=== PATIENT | male | born 1955 | race Caucasian/White ===

== ENCOUNTER 2019-02-11 03:06 | Inpatient (IN) | payer OTHER ==
[~2019-02-11] VITALS: Ht 175.3 cm; Wt 76.7 kg
[2019-02-11] VITALS (32 sets, daily range): BP systolic 92–149; BP diastolic 30–76
[2019-02-11] MEDS ORDERED: LEVOXYL100 MCG PO (03:09)
[2019-02-11] MEDS ORDERED: ZOCOR20 MG PO (03:09)
[2019-02-11] MEDS ORDERED: LANTUS100 UNIT/M SUBQ (03:10)
[2019-02-11] MEDS ORDERED: METFORMIN HCL500 MG PO (03:10)
[2019-02-11 03:20] LABS: MPV 7.5 fl. (7.2-11.1)
[2019-02-11 03:24] LABS: HEMATOCRIT 51.2 % (42.0-52.0); HEMOGLOBIN 14.1 gm/dL (14.0-18.0); MCH 29.1 pg (26.0-34.0); MCHC 27.5 g/dL (28.0-37.0); MCV 105.7 fL (80.0-100.0); NUCLEATED RBCS 0 /100WBC; PLATELET COUNT* 393 thou/uL (150-400); RBC 4.85 mil/uL (4.50-6.00); RDW-CV 14.9 % (10.5-14.5); WBC 29.9 thou/uL (4.0-11.0)
[2019-02-11 03:32] LABS: ANION GAP 35 mmol/L (7-16); BUN 70 mg/dL (7-18); CALCIUM 8.3 mg/dL (8.5-10.1); CHLORIDE 81 mmol/L (98-107); CREATININE 4.4 mg/dL (0.6-1.3); SODIUM 121 mmol/L (136-145)
[2019-02-11 03:33] LABS: PROTIME 10.6 Seconds (9.20-11.50)
[2019-02-11 03:34] LABS: CO2 < 5 mmol/L (21-32); POTASSIUM 7.9 mmol/L (3.5-5.1)
[2019-02-11 03:40] LABS: GLUCOSE 1333 mg/dL (70-99)
[2019-02-11 03:44] LABS: ALBUMIN 3.5 g/dL (3.4-5.0); ALKALINE PHOSPHATASE 107 U/L (46-116); MAGNESIUM 3.9 mg/dL (1.8-2.4); NT-PRO BRAIN NAT PEPTIDE 672 pg/mL (<300); SGOT 17 U/L (15-37); SGPT 26 U/L (30-65); TOTAL BILIRUBIN 0.4 mg/dL (<0.1-1.0); TOTAL PROTEIN 6.9 g/dL (6.4-8.2); TROPONIN-I LEVEL <0.06 ng/mL (<0.06)
[2019-02-11 03:59] LABS: BE -31.3 mmol/L (-2 to +3)
[2019-02-11 04:01] LABS: pH 6.806 (7.340-7.450)
[2019-02-11 04:02] LABS: PCO2 > 163.4 mmHg (35.0-45.0); PO2 154.9 mmHg (75.0-100.0)
[2019-02-11 04:06] LABS: PHOSPHORUS* 18.6 mg/dL (2.5-4.9)
[2019-02-11 04:23] LABS: ABSOLUTE LYMPHOCYTES 6.3 thou/uL (0.8-5.3); ABSOLUTE MONOCYTES 2.4 thou/uL (0.0-1.2); ABSOLUTE NEUTROPHILS 21.2 thou/uL (1.6-8.1); PLATELET ESTIMATE ADEQUATE; TOXIC GRANULATION 1+
[2019-02-11 04:24] LABS: ANISOCYTOSIS 1+; MACROCYTES 1+
[2019-02-11 04:30] LABS: LIPASE 24229 U/L (73-393)
[2019-02-11 06:39] LABS: ALBUMIN 3.2 g/dL (3.4-5.0); CALCIUM 8.3 mg/dL (8.5-10.1); CREATININE 3.7 mg/dL (0.6-1.3); MAGNESIUM 3.5 mg/dL (1.8-2.4); PHOSPHORUS* 12.6 mg/dL (2.5-4.9)
[2019-02-11 06:40] LABS: POTASSIUM 6.7 mmol/L (3.5-5.1)
--- NOTE | 2019-02-11 06:56 | NUR ---
PT ADMITTED TO ICU ROOM 6 AT 0515 FOR DKA. PT ARRIVED WITH ISSULIN DRIP AND IV FLUIDS INFUSING. SERUM GLUCOSE DRAWN PER PROTOCL TO MANAGE INSULIN DRIP. CRITICAL SERUM CO2 LEVEL CALLED TO DR WOLFE AT 0650. ORDERS RECIEVED FOR IV BICARB. PT'S AT BEDSIDE ASSISTING WITH CARE. PT GIVEN IV ZOFRAN FOR NAUSEA WITH GOOD RESULTS.
[2019-02-11 08:05] LABS: URINE BILIRUBIN NEGATIVE (Negative); URINE BLOOD 3+ (Negative); URINE CLARITY CLEAR; URINE COLOR YELLOW; URINE GLUCOSE-RANDOM 3+ (Negative); URINE LEUKOCYTES-REFLEX NEGATIVE (Negative); URINE NITRITE-REFLEX NEGATIVE (Negative); URINE PROTEIN TRACE (Negative); URINE UROBILINOGEN 0.2 E.U./dl (0.2-1.0)
[2019-02-11 08:12] LABS: URINE KETONES 3+ (Negative)
[2019-02-11 08:22] LABS: SQUAMOUS NONE SEEN /LPF (0-3)
[2019-02-11 08:23] LABS: BACTERIA-REFLEX 1-9 Few /HPF (None Seen); URINE RBC 0-2 Rare /HPF (0-2); URINE WBC-REFLEX None Seen /HPF (0-5)
[2019-02-11 08:24] LABS: CASTS None Seen /LPF (None Seen); CRYSTALS None Seen /LPF (None Seen); MUCUS None Seen strn/LPF (None Seen)
[2019-02-11 08:26] LABS: AMP/METHAMP Negative (Negative); BARBITURATES Negative (Negative); BENZODIAZEPINES Negative (Negative); COCAINE Negative (Negative); METHADONE Negative (Negative); OPIATES Negative (Negative); PCP Negative (Negative); THC Negative (Negative)
--- NOTE | 2019-02-11 08:46 | EKG ---
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[id number] Requested By: Leslie Edge Order Number: [id number] MD: Ricardo Berry Measurements Intervals [place] Rate: 94 P: 112 NE: 197 QRS: 76 QRSD: 136 T: -5 QT: 386 QTc: 483 Interpretive Statements Sinus rhythm artifact noted Inferior infarct, age indeterminate Minimal ST elevation, anterolateral leads No previous ECG available for comparison Electronically Signed On 02-11-2019 8:46:06 CDT by Ricardo Berry [email or web address] <ELECTRONICALLY SIGNED> By: Ricardo Berry MD, [facility] 02/11/19 0846 [id number] Ricardo Berry MD, FACC /EPI
[2019-02-11 09:44] LABS: ALBUMIN 3.1 g/dL (3.4-5.0); CALCIUM 7.9 mg/dL (8.5-10.1); CREATININE 3.1 mg/dL (0.6-1.3); PHOSPHORUS* 4.4 mg/dL (2.5-4.9); POTASSIUM 4.7 mmol/L (3.5-5.1)
[2019-02-11 11:14] LABS: BE -14.9 mmol/L (-2 to +3); PCO2 23.1 mmHg (35.0-45.0); PO2 100.9 mmHg (75.0-100.0)
[2019-02-11 11:18] LABS: pH 7.261 (7.340-7.450)
[2019-02-11 14:08] LABS: ALBUMIN 3.1 g/dL (3.4-5.0); CALCIUM 8.2 mg/dL (8.5-10.1); CREATININE 2.5 mg/dL (0.6-1.3); MAGNESIUM 2.7 mg/dL (1.8-2.4); PHOSPHORUS* 3.4 mg/dL (2.5-4.9); POTASSIUM 4.2 mmol/L (3.5-5.1)
[2019-02-11 17:54] LABS: CALCIUM 8.1 mg/dL (8.5-10.1); CREATININE 2.1 mg/dL (0.6-1.3); MAGNESIUM 2.5 mg/dL (1.8-2.4); PHOSPHORUS* 3.2 mg/dL (2.5-4.9); POTASSIUM 3.8 mmol/L (3.5-5.1)
--- NOTE | 2019-02-11 18:20 | NUR ---
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
--- NOTE | 2019-02-11 19:20 | NUR ---
I have checked [facility] RN charting and agree.
[2019-02-11 22:11] LABS: ALBUMIN 3.1 g/dL (3.4-5.0); CALCIUM 8.4 mg/dL (8.5-10.1); CREATININE 1.7 mg/dL (0.6-1.3); MAGNESIUM 2.5 mg/dL (1.8-2.4); PHOSPHORUS* 2.7 mg/dL (2.5-4.9); POTASSIUM 3.6 mmol/L (3.5-5.1)
[2019-02-12] VITALS (14 sets, daily range): BP systolic 114–172; BP diastolic 49–89
[2019-02-12 04:55] LABS: BASOPHILS 0.3 %; EOSINOPHILS 0.1 %; HEMATOCRIT 40.1 % (42.0-52.0); HEMOGLOBIN 13.5 gm/dL (14.0-18.0); LYMPHOCYTES 5.6 %; MCH 29.4 pg (26.0-34.0); MCHC 33.6 g/dL (28.0-37.0); MONOCYTES 10.3 %; MPV 6.5 fl. (7.2-11.1); NUCLEATED RBCS 0 /100WBC; POLYS 83.7 %; RBC 4.59 mil/uL (4.50-6.00); RDW-CV 13.7 % (10.5-14.5)
[2019-02-12 04:56] LABS: URINE BILIRUBIN NEGATIVE (Negative); URINE BLOOD 1+ (Negative); URINE CLARITY CLEAR; URINE COLOR YELLOW; URINE GLUCOSE-RANDOM 1+ (Negative); URINE KETONES TRACE (Negative); URINE LEUKOCYTES NEGATIVE (Negative); URINE NITRITE NEGATIVE (Negative); URINE PROTEIN TRACE (Negative); URINE UROBILINOGEN 0.2 E.U./dl (0.2-1.0)
[2019-02-12 04:58] LABS: ABSOLUTE LYMPHOCYTES 0.8 thou/uL (0.8-5.3); ABSOLUTE MONOCYTES 1.5 thou/uL (0.0-1.2); ABSOLUTE NEUTROPHILS 12.5 thou/uL (1.6-8.1); MCV 87.5 fL (80.0-100.0); PLATELET COUNT* 253 thou/uL (150-400); WBC 14.9 thou/uL (4.0-11.0)
[2019-02-12 05:04] LABS: ANION GAP 9 mmol/L (7-16); BUN 29 mg/dL (7-18); CALCIUM 8.6 mg/dL (8.5-10.1); CHLORIDE 111 mmol/L (98-107); CHOLESTEROL 106 mg/dL (<200); CO2 23 mmol/L (21-32); CREATININE 1.4 mg/dL (0.6-1.3); GLUCOSE 128 mg/dL (70-99); HDL CHOLESTEROL 53 mg/dL (>40); LDL CHOLESTEROL 38 mg/dL (<100); LIPASE 939 U/L (73-393); POTASSIUM 3.4 mmol/L (3.5-5.1); SODIUM 143 mmol/L (136-145); TRIGLYCERIDE 75 mg/dL (<150); VLDL 15 mg/dL (<40)
--- NOTE | 2019-02-12 05:22 | NUR ---
RECEIVED REPORT AND ASSUMED CARE AT 1900. ASSESSMENT COMPLETED CHARTED. ROUNDING COMPLETED, ALL NEEDS MET. BED LOCKED IN LOWEST POSITION, CALL LIGHT WITHIN REACH. NO ACUTE CHANGES THROUGH THE NIGHT. PT REPORTS PAIN/ DISCOMFORT IN HIS BACK, REFUSES PRN MEDICATION.
[2019-02-12 05:25] LABS: CALCIUM 8.7 mg/dL (8.5-10.1); CREATININE 1.4 mg/dL (0.6-1.3); MAGNESIUM 2.4 mg/dL (1.8-2.4); PHOSPHORUS* 2.1 mg/dL (2.5-4.9); POTASSIUM 3.4 mmol/L (3.5-5.1); SERUM ASSESSMENT Clear
[2019-02-12 05:42] LABS: BACTERIA 1-9 Few /HPF (None Seen); FINE GRANULAR CASTS 4-10 Moderate /LPF (None Seen); MUCUS 0-3 Light strn/LPF (None Seen); SQUAMOUS 0-3 Few /LPF (0-3); URIC ACID CRYSTALS 4-10 Moderate /LPF (None Seen); URINE RBC 0-2 Rare /HPF (0-2); URINE WBC 0-5 Rare /HPF (0-5)
[2019-02-12 08:37] LABS: CALCIUM 8.3 mg/dL (8.5-10.1); CREATININE 1.2 mg/dL (0.6-1.3); MAGNESIUM 2.2 mg/dL (1.8-2.4); PHOSPHORUS* 1.8 mg/dL (2.5-4.9); POTASSIUM 3.9 mmol/L (3.5-5.1)
[2019-02-12 09:09] LABS: GLYCOHEMOGLOBIN (HGB A1C) 12.6 % (4.8-5.6)
--- NOTE | 2019-02-12 10:45 | NUR ---
SPOKE WITH PATIENT. HE STATES HIS BLOOD SUGARS ARE NORMALLY WELL CONTROLLED AT HOME, HE THINKS HE MISSED A DOSE OF MEDS AND THEN STARTED FEELING BAD SO DIDN'T TAKE HIS MEDS LATER ON THAT SAME DAY. 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 PT LIVES AT HOME WITH HIS , HAS BEEN ACTIVE AND INDEP. PT DENIES ANY DISCHARGE NEEDS.
--- NOTE | 2019-02-12 17:08 | NUR ---
PATIENT REMAINS A&O X 4, PLEASANT AND COOPERATIVE WITH CARES. NO C/O PAIN OR SOB. DKA PROTOCOL DISCONTINUED THIS AM. PATIENT IS TRANSFER TO ROOM 205, REPORT CALLED TO FLOOR RN AND PATIENT'S WAS UPDATED WITH PATIENT NEW ROOM NUMBER. NO FURTHER CONCERNS AT THIS TIME. WILL CONTINUE TO MONITOR AND CARE PER PLAN OF CARE.
--- NOTE | 2019-02-12 18:26 | NUR ---
PT TRANSFERRED TO ROOM 205 AROUND 1730. ORIENTED TO ROOM. REPORT RECEIVED FROM PREVIOUS RN. NO OTHER CONCERNS AT THIS TIME. CLWR. WCTM.
[2019-02-13] VITALS: BP 132/73
[2019-02-13 04:00] VITALS: BP 141/81
[2019-02-13 04:50] LABS: ABSOLUTE EOSINOPHILS 0.2 thou/uL (0.0-0.7); ABSOLUTE LYMPHOCYTES 1.4 thou/uL (0.8-5.3); ABSOLUTE MONOCYTES 0.9 thou/uL (0.0-1.2); ABSOLUTE NEUTROPHILS 5.6 thou/uL (1.6-8.1); BASOPHILS 0.2 %; EOSINOPHILS 2.6 %; HEMATOCRIT 37.2 % (42.0-52.0); HEMOGLOBIN 12.8 gm/dL (14.0-18.0); MCHC 34.3 g/dL (28.0-37.0); MCV 87.4 fL (80.0-100.0); MONOCYTES 10.9 %; MPV 6.3 fl. (7.2-11.1); NUCLEATED RBCS 0 /100WBC; PLATELET COUNT* 204 thou/uL (150-400); POLYS 69.3 %; RBC 4.26 mil/uL (4.50-6.00); RDW-CV 13.8 % (10.5-14.5)
[2019-02-13 04:56] LABS: CALCIUM 8.9 mg/dL (8.5-10.1); CREATININE 0.7 mg/dL (0.6-1.3); POTASSIUM 3.1 mmol/L (3.5-5.1)
[2019-02-13] MEDS ORDERED: HUMALOG100 UNIT/1 SUBQ (09:39)
[2019-02-13 12:56] VITALS: BP 142/76
[2019-02-13 14:16] VITALS: BP 141/81
--- NOTE | 2019-02-14 10:12 | CON ---
[address] [address] CONSULTATION Name: RICARDO DUDLEY Room: [address] IN M.R.#: [id number] Admission: 02/11/19 Attend Phys: Sunita Wagoner MD Discharge: 02/13/19 Date of : 59 Report #: [id number] THIS REPORT FOR: //name// CC: JESSI physician/PCP Sunita Wagoner DATE OF SERVICE: 02/11/2019 NEPHROLOGY CONSULTATION CONSULTING PHYSICIAN: Dr. Wagoner. HISTORY OF PRESENT ILLNESS: A 64-year-old gentleman admitted with severe DKA. No underlying history of kidney disease. He had a blood sugar of over 1300 and a pH of 6.8. Upon admission, his lipase was also noted to be significantly elevated at almost 25,000. He came in with nausea, vomiting, abdominal discomfort, tells me that he had been compliant with his medications and that his symptoms came on rather suddenly after he went for his grandson's baseball game. He does not have any chest pain or shortness of breath. He currently really does not have any other complaints. REVIEW OF SYSTEMS: Constitutional, psych, heme, eyes, ENT, respiratory, cardiac, GI, , endocrine, all negative except as documented above. PAST MEDICAL HISTORY: Diabetes, dyslipidemia, hypothyroidism. SOCIAL HISTORY: Positive for tobacco. FAMILY HISTORY: Not pertinent to current clinical situation. PHYSICAL EXAMINATION: VITAL SIGNS: Blood pressure 124/48, pulse 116, respirations 18 and temperature 36.1. GENERAL: Not in any distress. EYES: Open. EARS: Externally normal. CARDIOVASCULAR: Tachycardic. LUNGS: Clear to auscultation. ABDOMEN: Some epigastric tenderness. MUSCULOSKELETAL: Nontender. PSYCHIATRIC: Awake, alert. LABORATORY DATA: White cell count 30, hemoglobin 14.1, platelets 393. Sodium 134, potassium 4.7, chloride 100, bicarbonate 12, BUN 65, creatinine 6.1, glucose 662, calcium 7.9, phosphorus 4.4, magnesium 3, albumin 3.1. [place] [id number] CONSULTATION Name: RICARDO DUDLEY Room: [address] IN ..#: [id number] Admission: 02/11/19 Attend Phys: Sunita Wagoner MD Discharge: 02/13/19 Date of : 59 Report #: [id number] ASSESSMENT: 1. Acute kidney injury. Baseline creatinine unknown. Admission creatinine 4.4 down to 3.7 on 02/11/2019 in the setting of severe DKA with blood sugar of over 1300. Urine drug screen was negative. UA noted. CT scan kidneys were okay. 2. Severe diabetic ketoacidosis with blood sugar over 1300, pH of 6.81 and a bicarbonate of 2.3 on admission. Lactic acid was 1.3. 3. Hyperkalemia in the setting of severe hyperglycemia with admission potassium was 7.9, now resolved. 4. Pancreatitis with a lipase of 24,000. PLAN: 1. Continue IV fluids per protocol. 2. Continue insulin drip until anion gap closed. 3. Bicarbonate given. We will repeat a blood gas. 4. We will need a repeat UA at a later time. 5. On empiric antibiotics per Internal Medicine. 6. Check triglyceride if greater than 1000, we will consider plasma exchange. 7. GI has been consulted. 8. We will follow closely along with you. Thank you for requesting my opinion in the care and management of this patient. <ELECTRONICALLY SIGNED> By: Jose C Antonio MD 02/14/19 1012 1110 [id number] Antonio MD /nt
--- NOTE | 2019-02-14 14:07 | CON ---
[address] [address] CONSULTATION Name: RICARDO DUDLEY Room: [address] IN M.R.#: [id number] Admission: 02/11/19 Attend Phys: Sunita Wagoner MD Discharge: 02/13/19 Date of : 59 Report #: [id number] THIS REPORT FOR: //name// CC: [facility] physician/PCP Zita Wagoner DICTATED BY: Ilda Garcia [facility] Please note at the time of this dictation, the patient was seen and physically examined by myself. REASON FOR CONSULTATION: Pancreatitis. HISTORY OF PRESENT ILLNESS: This is a 64-year-old male who had episodes of vomiting that morning since Monday. He had taken his insulin Monday about noon; however, it felt that he became more confused, began vomiting and started to pass out. His did help him to the floor and that is when EMS was called. He was very tachypneic at that time. On evaluation in the ER, his blood sugar was noted to be 1300. CT done at that time showed some nonspecific thickening of the distal esophagus as well as peripancreatic tissue stranding and a fatty liver. The patient has never seen a GI provider. He has never had an EUS or EGD or colonoscopy done in the past. ALLERGIES: No known drug allergies. MEDICATIONS: From home include Zocor, levothyroxine, Glucophage and Lantus. PAST MEDICAL HISTORY: Diabetes, uncontrolled; hyperlipidemia; and hypothyroidism. PAST SURGICAL HISTORY: Negative. FAMILY HISTORY: Negative for any GI or female cancers. SOCIAL HISTORY: Alcohol socially about once a month. He does chew tobacco and denies any illegal drug use. REVIEW OF SYSTEMS: Twelve-point review of systems is essentially negative except what is mentioned in the HPI. PHYSICAL EXAMINATION: VITAL SIGNS: Temperature 36.8, pulse 111, respirations 17 and blood pressure 149/78. HEART: Regular rate and rhythm, tachycardic. LUNGS: Diminished, but clear. ABDOMEN: Soft, positive bowel sounds in all 4 quadrants [place] [address] CONSULTATION Name: RICARDO DUDLEY Room: [address] IN [facility]#: [id number] Admission: 02/11/19 Attend Phys: Sunita Wagoner MD Discharge: 02/13/19 Date of : 59 Report #: [id number] left upper quadrant tenderness noted to palpation. LABORATORY DATA: Hemoglobin is 13.5, white count is 14.9 and platelets 253. Glucose today is 182. CRP is 51. GFR is 61. CT noted in above HPI note. Lipase level was 24,000 on admission, he is down to a little over 900. IMPRESSION: 1. Abdominal pain, epigastric and left upper quadrant. 2. Pancreatitis. 3. Diabetic ketoacidosis, improving. 4. Poorly-controlled diabetic. Hemoglobin A1c was 12.6. 5. Abnormal CT, distal esophageal wall thickening as well as pancreatic stranding. 6. Leukocytosis. PLAN: 1. Continue his IV fluids. 2. Clear liquid diet. 3. The patient will need an EGD for his esophageal wall thickening as well as colon for screening. 4. The patient may likely need an EUS for further evaluation of his pancreatitis. Thank you for allowing us to participate in this patient's care. Please do not hesitate to call with any questions in regard to this consult. <ELECTRONICALLY SIGNED> By: Rossy Joshi MD 02/14/19 1407 1127 [id number] Joshi MD /nt
== END 2019-02-13 16:49 | disposition home or self-care (01) | DRG 637 ==
LOC: M.ERS 03:06 → M.ICU 04:38 → M.TBA-ER 04:38 → M.ERS 04:50 → M.ICU 05:12 → M.2W 02-12 17:24
PROVIDERS: Emergency Medicine; Internal Medicine; Internal Medicine Nephrology; ADMIT Family Medicine
DX: E10.10 Type 1 diabetes mellitus with ketoacidosis without coma (principal); K85.80 Other acute pancreatitis without necrosis or infection; N17.0 Acute kidney failure with tubular necrosis; G93.40 Encephalopathy, unspecified; R65.10 Systemic inflammatory response syndrome (SIRS) of non-infectious origin without acute organ dysfunction; E78.5 Hyperlipidemia, unspecified; E03.9 Hypothyroidism, unspecified; F17.210 Nicotine dependence, cigarettes, uncomplicated; E87.5 Hyperkalemia; R41.0 Disorientation, unspecified; D72.829 Elevated white blood cell count, unspecified; Z79.4 Long term (current) use of insulin; Z79.899 Other long term (current) drug therapy